=== PATIENT | female | born 1940 | race Caucasian/White ===

== ENCOUNTER → 2017-03-10 | Outpatient (CLI) | payer OTHER ==
[~2017-03-10] MED LIST: AFRINWC NAE; AMOX500C3 PO; ASCA500 PO; ATOR-14 PO; BIMA0.038 OPB; COEN100C15 PO; FISHOIL PO; GLC500 PO; LISI-461 PO; MULTTAB58 PO; RMR15 PO; TIMO0.2534 OPB; magnesium PO
--- NOTE | 2017-03-10 12:07 | Discharge Instructions ---
Discharge Instructions Procedure Procedure Date: Mar 10, 2017. Reason for visit: Bilateral Thyroid Nodule Suspicious. Discharge Discharge Date: Mar 10, 2017. Discharge Diagnosis: Bilateral thyroid nodules Instructions Activity Recommendations: No limitations Return to School/Work: no limitations Recommended Home Diet: No Limitations, Resume Previous Diet Provider Instructions: ACTIVITY RECOMMENDATIONS: * Rest today. * Resume regular activity in one day. MEDICATIONS: * May take Tylenol or Ibuprofen as needed for pain. DIET: * Resume previous diet. SPECIAL CARE INSTRUCTIONS: Call your doctor if: * Temperature above 101 degrees F. * Pain not relieved by pain medicine ordered. * Increased drainage or redness from incision. * Notify your doctor with any questions or concerns. Call your doctor or go to the nearest Emergency Department if you experience: * Increased chest pain or shortness of breath. FOLLOW UP VISIT: Follow-up with Referring Physician as scheduled. Allergies Coded Allergies: Macrolides (Unverified Allergy, Mild, 02/23/12) Morphine (Unverified Allergy, Mild, 02/23/12) [place] Recommendations: Call your doctor if: * Temperature above 101 degrees * Pain not relieved by pain medicine ordered * There is increased drainage or redness from any incision * You have any unanswered questions or concerns. Your Doctors Instructions noted above were prepared by provider Jeremy Kaufman. Patient Signature Section: Patient Instructions Signature Page Fang Katt Patient (or Guardian) Signature/Date: I have read and understand the instructions given to me by my caregivers. Caregiver/RN/Doctor Signature/Date: The above-named patient and/or guardian has received patient instructions on this date. + Original Patient Signature Page (only) stays with chart. Please make copy for patient.
--- NOTE | 2017-03-10 12:21 | DIAGNOSTIC IMAGING REPORT ---
ULTRASOUND-GUIDED FINE-NEEDLE ASPIRATION THYROID CLINICAL HISTORY: Bilateral thyroid nodules. COMPARISON STUDY: Ultrasound of the neck 03/02/2017, 06/29/2013, 07/01/2012. PROCEDURE: LEFT THYROID NODULE: The risks, benefits, and alternatives to the procedure were discussed with the patient. Written informed consent was obtained. The patient was placed supine in ultrasound, and the 3.4 cm nodule in the left lobe of the thyroid was localized by ultrasound and selected for fine needle aspiration. The left neck was prepped and draped in the usual sterile fashion. The nodule was aspirated under ultrasound guidance with 2 passes utilizing 25-gauge needles. Specimens were reviewed by the pathologist in real-time. The specimens were deemed inadequate for diagnosis and the patient refused further biopsy. The patient tolerated the procedure well and left the department in satisfactory condition. RIGHT THYROID NODULE: The risks, benefits, and alternatives to the procedure were discussed with the patient. Written informed consent was obtained. The patient was placed supine in ultrasound, and the 1.2 cm nodule in the right lobe of the thyroid was localized by ultrasound and selected for fine needle aspiration. The right neck was prepped and draped in the usual sterile fashion. The nodule was aspirated under ultrasound guidance with 1 passes utilizing 25-gauge needles. Specimens were reviewed by the pathologist in real-time and deemed adequate for diagnosis. The patient tolerated the procedure well and left the department in satisfactory condition. IMPRESSION: Completed fine-needle aspiration of bilateral thyroid nodules as above. Electronically signed by: Clive Kaufman 03/10/2017 12:20 PM Dictated Date/Time: 03/10/2017 12:13 PM
== END | disposition home or self-care (01) ==
LOC: C.ULTR 10:09
PROVIDERS: ATTEND Internal Medicine
DX: E04.2 Nontoxic multinodular goiter (principal)